=== PATIENT | male | born 1970 | race Caucasian/White ===

== ENCOUNTER 2016-12-29 19:27 | Emergency (ER) | payer MEDICAID ==
[~2016-12-29] VITALS: Ht 172.7 cm; Wt 65.2 kg
[2016-12-29 19:28] VITALS: BP 136/95
== END 2016-12-29 22:29 | disposition home or self-care (01) ==
LOC: ED 22:23
DX: K64.4 Residual hemorrhoidal skin tags (principal)
CPT/HCPCS: 99283